=== PATIENT | female | born 1980 | race Caucasian/White ===

== ENCOUNTER 2021-01-28 07:54 | Emergency (ER) | payer OTHER ==
[~2021-01-28] VITALS: Ht 167.6 cm; Wt 68.0 kg
== END 2021-01-28 09:45 | disposition home or self-care (01) ==
LOC: ED 07:54
DX: F11.23 Opioid dependence with withdrawal (principal); K59.00 Constipation, unspecified; I10 Essential (primary) hypertension; F17.200 Nicotine dependence, unspecified, uncomplicated; Z91.040 Latex allergy status
CPT/HCPCS: 71046; 74018; 84703; 99284-25